=== PATIENT | female | born 1980 | race Caucasian/White ===

== ENCOUNTER 2024-01-28 08:35 | Emergency (ER) | payer MEDICAID ==
[2024-01-28] MEDS ORDERED: Sodium Chloride 0.9% 10 ML Syringe FLUSH PRN (09:23)
[2024-01-28 09:35] LABS: HEMOGLOBIN 13.4 g/dL (11.5-16.5); MEAN CORPUSCULAR HEMOGLOBIN 30.1 pg (27.0-32.0); MEAN CORPUSCULAR HGB CONC 34.4 g/dL (31.0-35.0); MEAN PLATELET VOLUME 9.5 fL (6.0-10.0); RED BLOOD CELL COUNT 4.45 M/uL (3.80-5.80); RED CELL DISTRIBUTION WIDTH 12.4 % (11.0-16.0); WHITE BLOOD CELL COUNT,WBC 9.5 K/uL (4.0-11.0)
[2024-01-28 09:46] LABS: ANION GAP 11.7 mmol/L (5.0-15.0); BUN/CREATININE RATIO 10.7 (6-25); CALCIUM 8.4 mg/dL (8.5-10.1); CARBON DIOXIDE,CO2 28.5 mmol/L (21.0-32.0); CREATININE 0.84 mg/dL (0.55-1.02); POTASSIUM,K 3.2 mmol/L (3.5-5.1)
[2024-01-28 10:20] LABS: CORONAVIRUS COVID-19 NAA NEGATIVE (NEGATIVE); INFLUENZA A NAA NEGATIVE (NEGATIVE); INFLUENZA B NAA NEGATIVE (NEGATIVE); RESPIRATORY SYNCYTIAL VIR NAA NEGATIVE (NEGATIVE)
[2024-01-28] MEDS ORDERED: Albuterol 0.083% 2.5 MG/3 ML Neb Soln ONE (10:30)
[2024-01-28] MEDS ORDERED: Azithromycin 250 MG Tab ONE (10:30)
[2024-01-28] MEDS: Albuterol/Ipratropium 3.0-0.5 MG/3 ML Neb Soln NEB ONE (10:35)
[2024-01-28] MEDS: Albuterol 0.083% 2.5 MG/3 ML Neb Soln ONE (10:49)
== END 2024-01-28 10:50 | disposition home or self-care (01) ==
LOC: LB.ED 08:35
DX: J21.9 Acute bronchiolitis, unspecified (principal); J45.909 Unspecified asthma, uncomplicated; Z88.8 Allergy status to other drugs, medicaments and biological substances; Z79.899 Other long term (current) drug therapy; Z79.51 Long term (current) use of inhaled steroids; Z86.19 Personal history of other infectious and parasitic diseases; Z90.49 Acquired absence of other specified parts of digestive tract
CPT/HCPCS: 0241U; 36415; 71045; 80048; 85027; 94640; 99285; A9270; 99283; J7620